=== PATIENT | male | born 1970 | race Two or more races ===

== ENCOUNTER 2020-05-21 11:19 | Inpatient (IN) | payer OTHER ==
[2020-05-21] MEDS ORDERED: MAGNESIUM CITRATE 300 ML BOTTLE PO PRN (12:23)
[2020-05-21] MEDS ORDERED: MAGNESIUM HYDROX 2400MG/30ML ORAL SUSPENSION 30 ML CUP PO PRN (12:23)
[2020-05-21] MEDS ORDERED: NICOTINE POLACRILEX 2 MG GUM BUC PRN (12:23)
[2020-05-21] MEDS ORDERED: MENTHOL/PHENOL 1 EACH UD MM PRN (12:23)
[2020-05-21] MEDS ORDERED: methaDONE HCL 10 MG TABLET (FOR DETOX USE ONLY) PO ONE (12:23)
[2020-05-21] MEDS ORDERED: chlordiazePOXIDE HCL 25 MG CAPSULE PO PRN (12:23)
[2020-05-21] MEDS ORDERED: ONDANSETRON *ODT* 4 MG TABLET SL PRN (12:23)
[2020-05-21] MEDS ORDERED: METHOCARBAMOL 500 MG TABLET PO PRN (12:23)
[2020-05-21] MEDS ORDERED: IBUPROFEN 400 MG TABLET (FP) PO PRN (12:23)
[2020-05-21] MEDS ORDERED: MAG HYDROX/AL HYDROX/SIMETH 30 ML UNIT-DOSE CUP PO PRN (12:23)
[2020-05-21] MEDS ORDERED: ACETAMINOPHEN 325 MG TABLET (FP) PO PRN ×2 (12:23)
[2020-05-21] MEDS ORDERED: BISMUTH SUBSALICYLATE 262 MG/15 ML BTL PO PRN (12:23)
[2020-05-21 12:55] VITALS: BMI 27.3
[2020-05-21] MEDS: hydrOXYzine PAMOATE 25 MG CAPSULE (FP) PO SCH ×3 (13:41→22:29)
[2020-05-21] MEDS: NICOTINE 14 MG/24 HOURS TOPICAL PATCH TD SCH (13:41)
[2020-05-21] MEDS: busPIRone HCL 10 MG TABLET (FP) PO SCH ×2 (15:19→22:26)
[2020-05-21 16:13] LABS: HEMATOCRIT 41.9 % (35.4-49); HEMOGLOBIN 13.5 GM/dL (11.7-16.9); MCH 30.6 pg (25.7-33.7); MCHC 32.3 g/dl (32.0-35.9); MEAN CELL VOLUME 94.8 fl (80-96); MEAN PLT VOLUME 8.6 fl (7.5-11.1); PLATELET COUNT 395 K/MM3 (134-434); RBC 4.42 M/mm3 (4.00-5.60); RDW 15.5 % (11.9-15.9); WHITE BLOOD COUNT 10.3 K/mm3 (4.0-10.0)
[2020-05-21 16:37] LABS: BLOOD UREA NITROGEN 9.7 mg/dL (7-18)
[2020-05-21 16:38] LABS: CALCIUM 8.4 mg/dL (8.5-10.1)
[2020-05-21 16:39] LABS: ALBUMIN 4.1 g/dl (3.4-5.0)
[2020-05-21 16:42] LABS: CREATININE 0.8 mg/dL (0.55-1.3)
[2020-05-21 16:43] LABS: TOT PROT 7.4 g/dl (6.4-8.2)
[2020-05-21 16:44] LABS: BILIRUBIN,TOTAL 0.7 mg/dL (0.2-1)
[2020-05-21] MEDS: chlordiazePOXIDE HCL 25 MG CAPSULE PO SCH ×2 (17:56→22:26)
[2020-05-21] MEDS: THIAMINE HCL 100 MG TABLET (FP) PO SCH (22:26)
[2020-05-21] MEDS: traZODone HCL 50 MG TABLET (FP) PO SCH (22:26)
[2020-05-21] MEDS: MELATONIN 5 MG TABLETS PO SCH (22:29)
[2020-05-22] MEDS: chlordiazePOXIDE HCL 25 MG CAPSULE PO SCH ×4 (05:38→22:30)
[2020-05-22] MEDS: hydrOXYzine PAMOATE 25 MG CAPSULE (FP) PO SCH ×5 (05:38→22:31)
[2020-05-22] MEDS: busPIRone HCL 10 MG TABLET (FP) PO SCH ×3 (05:38→22:30)
[2020-05-22] MEDS: cloNIDine HCL 0.1 MG TABLET PO PRN (05:40)
[2020-05-22] MEDS ORDERED: methaDONE HCL 10 MG TABLET (FOR DETOX USE ONLY) ONE (09:27)
[2020-05-22] MEDS: PARoxetine HCL 10 MG TABLET PO SCH (10:18)
[2020-05-22] MEDS: NICOTINE 14 MG/24 HOURS TOPICAL PATCH TD SCH (10:19)
[2020-05-22] MEDS: PRENATAL VITAMINS W/ FOLIC ACID TABLET (FP) PO SCH (10:19)
[2020-05-22] MEDS ORDERED: IBUPROFEN 600 MG TABLET (FP) PO PRN (11:48)
[2020-05-22] MEDS: THIAMINE HCL 100 MG TABLET (FP) PO SCH (22:30)
[2020-05-22] MEDS: traZODone HCL 50 MG TABLET (FP) PO SCH (22:30)
[2020-05-22] MEDS: MELATONIN 5 MG TABLETS PO SCH (22:30)
[2020-05-23] MEDS: hydrOXYzine PAMOATE 25 MG CAPSULE (FP) PO SCH ×5 (05:29→22:29)
[2020-05-23] MEDS: busPIRone HCL 10 MG TABLET (FP) PO SCH ×3 (05:29→22:28)
[2020-05-23] MEDS: chlordiazePOXIDE HCL 25 MG CAPSULE PO SCH ×4 (05:29→22:29)
[2020-05-23] MEDS: cloNIDine HCL 0.1 MG TABLET PO PRN ×2 (07:46→17:50)
[2020-05-23] MEDS ORDERED: methaDONE HCL 10 MG TABLET (FOR DETOX USE ONLY) PO ONE (10:00)
[2020-05-23] MEDS: NICOTINE 14 MG/24 HOURS TOPICAL PATCH TD SCH (10:28)
[2020-05-23] MEDS: PRENATAL VITAMINS W/ FOLIC ACID TABLET (FP) PO SCH (10:28)
[2020-05-23] MEDS: PARoxetine HCL 10 MG TABLET PO SCH (10:30)
[2020-05-23] MEDS ORDERED: INDOMETHACIN 50 MG CAPSULE PO ONE (12:48)
[2020-05-23] MEDS: amLODIPine BESYLATE 5 MG TABLET (FP) PO SCH (14:00)
[2020-05-23] MEDS: INDOMETHACIN 25 MG CAPSULE PO SCH (14:00)
[2020-05-23] MEDS: MELATONIN 5 MG TABLETS PO SCH (22:28)
[2020-05-23] MEDS: traZODone HCL 50 MG TABLET (FP) PO SCH (22:29)
[2020-05-23] MEDS: THIAMINE HCL 100 MG TABLET (FP) PO SCH (22:29)
[2020-05-24] MEDS ORDERED: chlordiazePOXIDE HCL 10 MG CAPSULE PO PRN
[2020-05-24] MEDS: chlordiazePOXIDE HCL 10 MG CAPSULE PO SCH ×4 (05:33→22:22)
[2020-05-24] MEDS: busPIRone HCL 10 MG TABLET (FP) PO SCH ×3 (05:33→22:24)
[2020-05-24] MEDS: hydrOXYzine PAMOATE 25 MG CAPSULE (FP) PO SCH ×5 (05:33→22:22)
[2020-05-24] MEDS ORDERED: methaDONE HCL 10 MG TABLET (FOR DETOX USE ONLY) ONE (09:16)
[2020-05-24] MEDS: PRENATAL VITAMINS W/ FOLIC ACID TABLET (FP) PO SCH (10:30)
[2020-05-24] MEDS: amLODIPine BESYLATE 5 MG TABLET (FP) PO SCH (10:30)
[2020-05-24] MEDS: PARoxetine HCL 10 MG TABLET PO SCH (10:34)
[2020-05-24] MEDS: INDOMETHACIN 25 MG CAPSULE PO SCH ×2 (10:34→22:22)
[2020-05-24] MEDS: NICOTINE 14 MG/24 HOURS TOPICAL PATCH TD SCH (10:36)
[2020-05-24] MEDS: THIAMINE HCL 100 MG TABLET (FP) PO SCH (22:22)
[2020-05-24] MEDS: traZODone HCL 50 MG TABLET (FP) PO SCH (22:22)
[2020-05-24] MEDS: MELATONIN 5 MG TABLETS PO SCH (22:24)
[2020-05-25] MEDS: chlordiazePOXIDE HCL 10 MG CAPSULE PO SCH ×2 (05:32→18:27)
[2020-05-25] MEDS: hydrOXYzine PAMOATE 25 MG CAPSULE (FP) PO SCH ×5 (05:32→22:32)
[2020-05-25] MEDS: busPIRone HCL 10 MG TABLET (FP) PO SCH ×3 (05:33→22:32)
[2020-05-25] MEDS ORDERED: methaDONE HCL 10 MG TABLET (FOR DETOX USE ONLY) PO ONE (10:00)
[2020-05-25] MEDS: PRENATAL VITAMINS W/ FOLIC ACID TABLET (FP) PO SCH (10:20)
[2020-05-25] MEDS: NICOTINE 14 MG/24 HOURS TOPICAL PATCH TD SCH (10:20)
[2020-05-25] MEDS: INDOMETHACIN 25 MG CAPSULE PO SCH ×2 (10:21→22:32)
[2020-05-25] MEDS: amLODIPine BESYLATE 5 MG TABLET (FP) PO SCH (10:21)
[2020-05-25] MEDS: PARoxetine HCL 10 MG TABLET PO SCH (10:21)
[2020-05-25] MEDS: MELATONIN 5 MG TABLETS PO SCH (22:32)
[2020-05-25] MEDS: THIAMINE HCL 100 MG TABLET (FP) PO SCH (22:32)
[2020-05-25] MEDS: traZODone HCL 50 MG TABLET (FP) PO SCH (22:34)
[2020-05-26] MEDS ORDERED: chlordiazePOXIDE HCL 10 MG CAPSULE PO ONE (05:00)
[2020-05-26] MEDS: busPIRone HCL 10 MG TABLET (FP) PO SCH (05:32)
[2020-05-26] MEDS: hydrOXYzine PAMOATE 25 MG CAPSULE (FP) PO SCH (05:34)
[2020-05-26 06:03] VITALS: BP 125/81; PULSE 78; TEMP 98
== END 2020-05-26 09:07 | disposition home or self-care (01) | DRG 773 ==
LOC: YASAS 11:19 → Y6N 12:59
PROVIDERS: ADMIT Allergy & Immunology; ATTEND Allergy & Immunology
PROC: HZ2ZZZZ Detoxification Services for Substance Abuse Treatment (ICD-10-PCS; principal; 2020-05-21)
DX: F11.23 Opioid dependence with withdrawal (principal); F10.230 Alcohol dependence with withdrawal, uncomplicated; F17.210 Nicotine dependence, cigarettes, uncomplicated; F19.282 Other psychoactive substance dependence with psychoactive substance-induced sleep disorder; F19.280 Other psychoactive substance dependence with psychoactive substance-induced anxiety disorder; F19.24 Other psychoactive substance dependence with psychoactive substance-induced mood disorder; F32.9 Major depressive disorder, single episode, unspecified; I10 Essential (primary) hypertension; G47.00 Insomnia, unspecified; H91.92 Unspecified hearing loss, left ear; R74.01 Elevation of levels of liver transaminase levels; M1A.27 Drug-induced chronic gout, ankle and foot; T38.0X5A Adverse effect of glucocorticoids and synthetic analogues, initial encounter; Y92.018 Other place in single-family (private) house as the place of occurrence of the external cause; Z91.410 Personal history of adult physical and sexual abuse; Z87.81 Personal history of (healed) traumatic fracture
CPT/HCPCS: 36415; 80053; 85027; 86780; 93005; 93010; C9803; J0735; U0003